=== PATIENT | male | born 1990 | race Hispanic/Latino ===

== ENCOUNTER 2020-09-30 21:38 | Emergency (ER) | payer BC, SELFPAY ==
[2020-09-30] MEDS ORDERED: EPINEPHrine 1 MG/10 ML SYR IV ONE (21:39)
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
[2020-10-01 01:54] VITALS: O2SAT 92
== END 2020-10-01 01:51 ==
LOC: ER 21:38
PROC: 5A02210 Assistance with Cardiac Output using Balloon Pump, Continuous (ICD-10-PCS; principal; 2020-10-01)
DX: S21.332A Puncture wound without foreign body of left front wall of thorax with penetration into thoracic cavity, initial encounter (principal); W34.00XA Accidental discharge from unspecified firearms or gun, initial encounter; Y92.89 Other specified places as the place of occurrence of the external cause
CPT/HCPCS: 92950; 96374; 99285; G0390; J0171